=== PATIENT | male | born 1950 | race Caucasian/White ===

== ENCOUNTER 2018-12-10 21:44 | Emergency (ER) | payer MEDICARE, MEDICAID ==
[~2018-12-10] VITALS: Ht 175.3 cm; Wt 74.0 kg
[2018-12-10 21:58] VITALS: BP 144/91
[2018-12-10] MEDS ORDERED: IBUPROFEN 600MG TABLET PO ONE (23:00)
[2018-12-10] MEDS ORDERED: HYDROCODONE/ACETAMINOPHEN 5/325MG TABLET PO ONE (23:00)
== END 2018-12-11 00:35 | disposition left against medical advice (07) ==
LOC: ER 21:44
DX: S40.012A Contusion of left shoulder, initial encounter (principal); S80.812A Abrasion, left lower leg, initial encounter; S80.811A Abrasion, right lower leg, initial encounter; V18.0XXA Pedal cycle driver injured in noncollision transport accident in nontraffic accident, initial encounter; Y93.55 Activity, bike riding; Y92.488 Other paved roadways as the place of occurrence of the external cause
CPT/HCPCS: 73030; 99283; A4565